=== PATIENT | female | born 1995 | race Caucasian/White ===

== ENCOUNTER → 2024-05-16 | Day surgery (SDC) | payer OTHER ==
[~2024-05-16] MED LIST: FENTANYL CITRATE/PF 100MCG/2 ML INJ ONE; GLYCOPYRROLATE INJ 0.2 MG/ML VIAL ONE; KETAMINE 50MG/5ML SYR ONE; LIDOCAINE HCL 2% LOCAL INJ 5 ML SDV VIAL INJ ONE; METOCLOPRAMIDE HCL 10 MG/2ML VIAL ONE; OMEPRAZOLE40 MG PO; ONDANSETRON HCL INJ 2MG/ML 2ML 2 MG/ML VIAL ONE; PROPOFOL IV EMULSION 10 MG/ML 20 ML VIAL ONE
[2024-05-16] MEDS: LACTATED RINGER'S 1,000 ML ONE (12:24)
[2024-05-16 14:30] VITALS: TEMP 97.2
[2024-05-16 15:00] VITALS: BP 120/82; PULSE 64; RESP 13; O2SAT 100
[2024-05-19 19:10] LABS: ENDOMYSIAL ANTIBODIES, IGA Negative (Negative)
[2024-05-19 21:12] LABS: IMMUNOGLOBULIN A 252 mg/dL (87-352); TISSUE TRANSGLUTAMINASE IGA AB 4 U/mL (0-3)
== END | disposition home or self-care (01) ==
LOC: OR 11:55
PROVIDERS: ATTEND Internal Medicine Gastroenterology
DX: K29.50 Unspecified chronic gastritis without bleeding (principal); K22.10 Ulcer of esophagus without bleeding; K21.9 Gastro-esophageal reflux disease without esophagitis; K44.9 Diaphragmatic hernia without obstruction or gangrene; Z71.3 Dietary counseling and surveillance; Z68.35 Body mass index [BMI] 35.0-35.9, adult
CPT/HCPCS: 43239; 81025; 82784; 83516; 86256; 88305; J2003; J2405; J2470; J2765